=== PATIENT | male | born 1955 | race African-American/Black ===

== ENCOUNTER 2019-10-07 18:26 | Emergency (ER) | payer MEDICARE, MEDICAID ==
[2019-10-07 19:09] LABS: Hematocrit 44 % (42-52); Hemoglobin 15.7 g/dL (14.0-18.0); Mean Corpuscular HGB Conc 36 g/dL (31-36); Mean Corpuscular Hemoglobin 32 pg (27-31); Mean Corpuscular Volume 91 fL (80-94); Mean Platelet Volume 8.2 fL (7.4-10.4); Platelet Count 288 10^3/uL (150-450); Red Blood Count 4.87 10^6 /uL (4.18-5.48); Red Cell Distribution Width 14 % (10-15); White Blood Count 8.5 10^3/uL (3.5-10.8)
--- NOTE | 2019-10-07 19:22 | ED ---
HPI Chest Pain - HPI Summary HPI Summary: 64 year old M arriving via EMS to [facility] complains of 2 episodes of shortness of breath, dizziness/light headedness, left sided chest pain. Patient had one episode yesterday while walking up a hill. He states he developed symptoms suddenly. It felt like a panic attack per patient. No hx anxiety. He has never had a panic attack before. He went home, took some aspirin, drank some cough syrup, laid down, felt better. No cough. He has walked up this same hill many times before and never had these symptoms. Patient woke this morning feeling well. He had another episode today around 1500 while playing a game. He states he stood up and suddenly developed dizziness/light headedness, shortness of breath, left sided chest pain. This episode lasted several minutes. Patient reports no symptoms currently. Symptoms aggravated by nothing. Symptoms alleviated by aspirin, rest, NTG. EMS gave aspirin 324 mg and NTGx1. Current smoker. He lives with his mother. No recent known sick contacts. No recent stress. Home Medications Medication Instructions Recorded Confirmed Type NK [No Home Medications Reported] 10/07/19 10/07/19 History - History of Current Complaint Chief Complaint: EDChestPainROMI Time Seen by Provider: 10/07/19 18:56 Onset/Duration: Started Days Ago - 1, Resolved Timing: Lasting Minutes Current Severity: None Pain Intensity: 0 Pain Scale Used: 0-10 Numeric Aggravating Factor(s): Nothing Alleviating Factor(s): Rest, NTG 123, Other: - aspirin Associated Signs and Symptoms: Positive: Other: - shortness of breath, dizziness /light headedness - Allergy/Home Medications Allergies/Adverse Reactions: Allergies Allergy/AdvReac Type Severity Reaction Status Date / Time No Known Allergies Allergy Verified 03/21/15 17:12 Home Medications: Home Medications NK [No Home Medications Reported] 10/07/19 [History Confirmed 10/07/19] PMH/Surg Hx/FS Hx/Imm Hx Endocrine/Hematology History: Denies: Hx Anticoagulant Therapy, Hx Diabetes, Hx Thyroid Disease Cardiovascular History: Denies: Hx Hypertension, Hx Pacemaker/ICD Respiratory History: Denies: Hx Asthma, Hx Chronic Obstructive Pulmonary Disease (COPD) History: Denies: Hx Renal Disease Neurological History: Denies: Hx Dementia, Hx Seizures Psychiatric History: Denies: Hx Anxiety - Surgical History Surgical History: None Infectious Disease History: No Infectious Disease History: Denies: Hx Hepatitis, Hx Human Immunodeficiency Virus (HIV), Traveled Outside the [place] in Last 30 Days - Family History Known Family History: Positive: Cardiac Disease, Hypertension - Social History Alcohol Use: Weekly Hx Substance Use: Yes Substance Use Type: Reports: Marijuana Hx Tobacco Use: Yes Smoking Status (MU): Heavy Every Day Tobacco Smoker Review of Systems Positive: Chest Pain Positive: Shortness Of Breath. Negative: Cough Neurological/Mental Status: Other - light headedness/dizziness All Other Systems Reviewed And Are Negative: Yes Physical Exam - Summary Physical Exam Summary: Appearance: Well-appearing, Well-nourished, lying in bed comfortably Skin: Warm, dry, no obvious rash Eyes: sclera anicteric, no conjunctival pallor HENT: mucous membranes moist, pharynx appears normal Neck: Supple, nontender Respiratory: Clear to auscultation, no signs of respiratory distress Cardiovascular: Normal S1, S2. No murmurs. Normal distal pulses in tibial and radial bilaterally. Abdomen: Soft, nontender, normal active bowel sounds present Musculoskeletal: Normal, Strength/ROM Intact Neurological: A&Ox3, awake and alert, mentation is normal, speech is fluent and appropriate Psychiatric: affect is normal, does not appear anxious or depressed Triage Information Reviewed: Yes Vital Signs On Initial Exam: Initial Vitals Temp Pulse Resp BP Pulse Ox 99.6 F 67 17 120/76 98 10/07/19 18:41 10/07/19 18:41 10/07/19 18:41 10/07/19 18:41 10/07/19 18:41 Vital Signs Reviewed: Yes Procedures - Sedation Patient Received Moderate/Deep Sedation with Procedure: No Diagnostics - Vital Signs Vital Signs Temp Pulse Resp BP Pulse Ox 10/07/19 18:41 99.6 F 67 17 120/76 98 - Laboratory Lab Results: Lab Results 10/07/19 Range/Units 19:01 WBC 8.5 (3.5-10.8) 10^3/uL RBC 4.87 (4.18-5.48) 10^6 /uL Hgb 15.7 (14.0-18.0) g/dL Hct 44 (42-52) % MCV 91 (80-94) fL MCH 32 H (27-31) pg MCHC 36 (31-36) g/dL RDW 14 (10-15) % Plt Count 288 (150-450) 10^3/uL MPV 8.2 (7.4-10.4) fL Neut % (Auto) Pending Lymph % (Auto) Pending [place] % (Auto) Pending Eos % (Auto) Pending Baso % (Auto) Pending Absolute Neuts (auto) Pending Absolute Lymphs (auto) Pending Absolute Monos (auto) Pending Absolute Eos (auto) Pending Absolute Basos (auto) Pending Absolute Nucleated RBC Pending Nucleated RBC % Pending Result Diagrams: 10/07/19 19:01 10/07/19 19:01 Lab Statement: Any lab studies that have been ordered have been reviewed, and results considered in the medical decision making process. - EKG 191 Summary of EKG Findings: NSR at 67 BPM, P waves, QRS complex, and T waves are within normal limits, T waves and intervals are normal, no ischemic changes. This is a normal EKG. ED physician has reviewed and interpreted this EKG. Re-Evaluation - Re-Evaluation First Eval Re-Evaluation Time: 20:30 - patient requests nicotine patch Second Eval Re-Evaluation Time: 23:11 - patient agrees to d/c Chest Pain Course/Dx - Course Course Of Treatment: 64 y/o M presents after having 2 episodes of shortness of breath, dizziness/light headedness, left sided chest pain. Patient had one episode yesterday while walking up a hill. He took some aspirin and cough syrup , laid down, and felt better. He has walked up this same hill many times before and never had these symptoms. Patient woke this morning feeling well. He had another episode today around 1500 while playing a game. He states he stood up and suddenly developed symptoms. These episodes lasted several minutes. EMS gave aspirin 324 mg and NTGx1. Patient reports no symptoms currently. Physical exam unremarkable. Bloodwork results with no significant abnormalities. Second troponin 0.00. An EKG shows NSR at 67 BPM, P waves, QRS complex, and T waves are within normal limits, T waves and intervals are normal, no ischemic changes. This is a normal EKG. Patient's symptoms are resolved upon arrival to the ED. He has no symptoms while in the ED. Patient will be discharged home with follow up from [facility]. Patient was instructed to return to Emergency Department for new or worsening symptoms. Patient understands and is agreeable to this plan. - Diagnoses Provider Diagnoses: Dyspnea Discharge ED - Sign-Out/Discharge Documenting (check all that apply): Patient Departure - Discharge Plan Condition: Good Disposition: HOME Patient Education Materials: Dyspnea (ED) Referrals: [facility] [Outside] Additional Instructions: We did not find any evidence of trouble with your heart, so it is safe for you to go home. Of course, if you start to feel worse at home you should come back here. You should have a followup visit with your doctor or [facility] here at the hospital within the week. - Billing Disposition and Condition Condition: GOOD Disposition: Home - Attestation Statements Document Initiated by Servando: Yes Documenting Scribe: Cindy Garcia Provider For Whom Servando is Documenting (Include Credential): Richy Pickett MD Scribe Attestation: Cindy Abbasi, scribed for Richy Pickett MD on 10/09/19 at 0218. Scribe Documentation Reviewed: Yes Provider Attestation: The documentation as recorded by the Cindy alvarez accurately reflects the service I personally performed and the decisions made by , Richy Pickett MD Status of Scribvinnie Document: Viewed
[2019-10-07 19:26] LABS: Albumin 3.9 g/dL (3.2-5.2); Albumin/Globulin Ratio 1.3 (1-3); BUN/Creatinine Ratio 12.2 (8-20); Calcium 8.9 mg/dL (8.6-10.3); EGFR African American 128.4 (>60); EGFR Non-African American 106.2 (>60); Globulin 3.1 g/dL (2-4); Potassium 3.7 mmol/L (3.5-5.0); Total Bilirubin 0.6 mg/dL (0.2-1.0)
[2019-10-07 19:28] LABS: Troponin I 0.01 ng/mL (<0.03)
[2019-10-07 19:46] LABS: ABS Basophils 0.1 10^3/ul (0-0.2); ABS Eosinophils 0.1 10^3/ul (0-0.6); ABS Lymphocytes 2.9 10^3/ul (1.0-4.8); ABS Monocytes 0.5 10^3/ul (0-0.8); ABS Neutrophils 4.9 10^3/ul (1.5-7.7); Eosinophil % 1.4 %; Lymphocyte % 34.2 %
[2019-10-07] MEDS ORDERED: Nicotine PATCH 14 MG/24 HR* PATCH TRANSDERM ONE (20:30)
[2019-10-07 23:14] VITALS: BP 121/65
== END 2019-10-07 23:24 | disposition home or self-care (01) ==
LOC: ED 18:26 → MERGE 18:26 → ED 23:24
DX: R06.00 Dyspnea, unspecified (principal); R06.02 Shortness of breath; R42 Dizziness and giddiness; F17.210 Nicotine dependence, cigarettes, uncomplicated; R07.9 Chest pain, unspecified
CPT/HCPCS: 36415; 80053; 84484; 85025; 93005; 99283; A9270-GY

== ENCOUNTER 2023-02-04 07:48 | Observation (INO) ==
[2023-02-04] MEDS ORDERED: Lactated Ringers 1000 ml BAG 1,000 ML IV ONE ×2 (07:53→15:01)
[2023-02-04 08:44] LABS: ABS Basophils 0.1 10^3/uL (0.0-0.1); ABS Lymphocytes 1.1 10^3/uL (1.0-4.8); ABS Monocytes 1.5 10^3/uL (0.0-1.1); ABS Neutrophils 19.3 10^3/uL (1.5-7.6); ABS Nucleated RBC 0.01 10^3/ul; Eosinophil % 0.1 %; Hematocrit 47.1 % (38-53); Hemoglobin 16.6 g/dL (13.2-16.3); Lymphocyte % 4.9 %; Mean Corpuscular Hemoglobin 32.4 pg (27-33); Mean Corpuscular Hgb Conc 35.3 g/dL (31-36); Mean Corpuscular Volume 91.7 fL (80-97); Mean Platelet Volume 8.7 fL (7.5-11.2); Platelet Count 238 10^3/uL (150-450); Red Blood Count 5.14 10^6/uL (4.06-5.63); Red Cell Distribution Width 14.8 % (12-17); White Blood Count 21.9 10^3/uL (3.6-10.2)
[2023-02-04 09:13] LABS: Albumin 3.8 g/dL (3.2-5.2); Albumin/Globulin Ratio 1.1 (1-3); C Reactive Protein 178.73 mg/L (<8.01); Calcium 8.6 mg/dL (8.6-10.3); Creatinine, Serum 0.81 mg/dL (0.67-1.17); Globulin 3.4 g/dL (2-4); Potassium 3.1 mmol/L (3.5-5.0); Total Bilirubin 1.5 mg/dL (0.2-1.0); Total Protein 7.2 g/dL (6.4-8.9)
[2023-02-04] MEDS ORDERED: Potassium EFFERVES 25 meq TAB PO ONE (09:16)
[2023-02-04 10:13] LABS: High Sensitivity Troponin 1 Hr 11 pg/mL (<20)
[2023-02-04 10:29] LABS: Urine Appearance Clear; Urine Bilirubin Negative (Negative); Urine Blood 1+ (Negative); Urine Color Amber; Urine Glucose Negative (Negative); Urine Ketones 1+ (Negative); Urine Nitrite Negative (Negative); Urine Protein 2+(100 mg/dL) (Negative); Urine Specific Gravity 1.021 (1.002-1.030); Urine Urobilinogen Positive (Negative)
[2023-02-04 10:40] LABS: Urine Bacteria Absent (Absent); Urine Red Blood Cell 3+(>10/hpf) (Absent); Urine Squamous Epithelial Cell Present (Absent); Urine White Blood Cell Trace(0-5/hpf) (Absent)
[2023-02-04] MEDS ORDERED: Iohexol 350 (CONTRAST) 500 ML MDV IV ONE (10:52)
[2023-02-04] MEDS ORDERED: Thiamine 100 MG/ML 2 ml VIAL (200 mg) IV ONE (12:10)
[2023-02-04] MEDS ORDERED: Azithromycin 500 mg/250 ml NS 500 MG/250 ML BAG IVPB ONE (12:52)
[2023-02-04] MEDS ORDERED: cefTRIAXone 2 gm/50 mL D5W 2 GM/50 ML BAG IV ONE (12:52)
[2023-02-04 13:40] LABS: Blood Urea Nitrogen 7 mg/dL (6-24); CO2 Carbon Dioxide 19 mmol/L (22-32); Calcium 6.7 mg/dL (8.6-10.3); Chloride 101 mmol/L (101-111); Creatinine, Serum 0.53 mg/dL (0.67-1.17); Glucose 98 mg/dL (70-100); Sodium 126 mmol/L (135-145); eGFR CKD-EPI 109.2 (>60)
[2023-02-04 13:46] LABS: Anion Gap 6 mmol/L (2-16)
[2023-02-04] MEDS ORDERED: Senna TAB 8.6 mg TAB PO PRN (14:52)
[2023-02-04] MEDS ORDERED: Polyethylene Glycol 3350 17 GM PACKET PO PRN (14:52)
[2023-02-04] MEDS ORDERED: Magnesium Hydroxide LIQ 30 ML UDC PO PRN (14:52)
[2023-02-04] MEDS ORDERED: Thiamine 100 MG/ML 2 ml VIAL (200 mg) IM ONE (14:58)
[2023-02-04] MEDS ORDERED: LORazepam 2 mg VIAL 1 ml IV PUSH SCH (15:00)
[2023-02-04] MEDS ORDERED: Lorazepam PYXIS KEY PRN (15:02)
[2023-02-04] MEDS: Multivitamins/Minerals TAB PO SCH (16:08)
[2023-02-04 17:09] LABS: Urine Osmo 811 mOsm/kg (150-1150)
[2023-02-04 17:53] LABS: Osmolality Serum 265 mOsm/kg (275-295)
[2023-02-04 18:12] LABS: Folate 9.16 ng/mL (5.90-24.80)
[2023-02-05 06:03] LABS: ABS Basophils 0.1 10^3/uL (0.0-0.1); ABS Lymphocytes 1.2 10^3/uL (1.0-4.8); ABS Neutrophils 15.5 10^3/uL (1.5-7.6); ABS Nucleated RBC 0.01 10^3/ul; Hematocrit 46.6 % (38-53); Hemoglobin 16.5 g/dL (13.2-16.3); Lymphocyte % 6.8 %; Mean Corpuscular Hemoglobin 32.6 pg (27-33); Mean Corpuscular Hgb Conc 35.4 g/dL (31-36); Mean Corpuscular Volume 92.2 fL (80-97); Mean Platelet Volume 8.6 fL (7.5-11.2); Platelet Count 213 10^3/uL (150-450); Red Blood Count 5.05 10^6/uL (4.06-5.63); Red Cell Distribution Width 14.7 % (12-17); White Blood Count 17.7 10^3/uL (3.6-10.2)
[2023-02-05 06:12] LABS: Calcium 8.3 mg/dL (8.6-10.3); Creatinine, Serum 0.81 mg/dL (0.67-1.17); Magnesium 1.5 mg/dL (1.9-2.7); Potassium 3.6 mmol/L (3.5-5.0)
[2023-02-05] MEDS ORDERED: Potassium Chlor 20 meq TAB.ER PO ONE (07:30)
[2023-02-05] MEDS ORDERED: Magnesium Sulf 4 GM/100 ML IV 4,000 MG/100 ML BAG IVPB ONE (07:30)
[2023-02-05] MEDS: Multivitamins/Minerals TAB PO SCH (08:22)
[2023-02-05] MEDS ORDERED: Sodium Chloride(INHALANT) 7% 4 ML NEB.SOLN INH ONE (10:57)
[2023-02-05] MEDS ORDERED: Azithromycin 500 mg/250 ml NS 500 MG/250 ML BAG IVPB SCH (13:00)
[2023-02-05] MEDS ORDERED: NS 0.9% 1000 ml BAG 1,000 ML IV SCH (15:30)
[2023-02-05] MEDS ORDERED: cefTRIAXone 1 gm/50 mL D5W 1 GM/50 ML BAG IV SCH (16:00)
[2023-02-05 21:17] LABS: Creatinine, Serum 0.74 mg/dL (0.67-1.17); Potassium 3.9 mmol/L (3.5-5.0); eGFR CKD-EPI 98.7 (>60)
[2023-02-06 05:53] LABS: ABS Basophils 0.1 10^3/uL (0.0-0.1); ABS Lymphocytes 1.8 10^3/uL (1.0-4.8); ABS Monocytes 1.4 10^3/uL (0.0-1.1); ABS Neutrophils 9.1 10^3/uL (1.5-7.6); ABS Nucleated RBC 0.06 10^3/ul; Eosinophil % 0.2 %; Hematocrit 48.3 % (38-53); Hemoglobin 16.8 g/dL (13.2-16.3); Lymphocyte % 14.5 %; Mean Corpuscular Hemoglobin 32.7 pg (27-33); Mean Corpuscular Hgb Conc 34.8 g/dL (31-36); Mean Corpuscular Volume 93.8 fL (80-97); Mean Platelet Volume 8.7 fL (7.5-11.2); Nucleated Red Blood Cells % 0.5 /100 WBC (0.0-0.4); Platelet Count 255 10^3/uL (150-450); Red Blood Count 5.14 10^6/uL (4.06-5.63); Red Cell Distribution Width 14.9 % (12-17); White Blood Count 12.3 10^3/uL (3.6-10.2)
[2023-02-06 06:13] LABS: Calcium 8.3 mg/dL (8.6-10.3); Creatinine, Serum 0.84 mg/dL (0.67-1.17); Magnesium 2.2 mg/dL (1.9-2.7); Potassium 4.2 mmol/L (3.5-5.0)
[2023-02-06] MEDS: Multivitamins/Minerals TAB PO SCH (08:23)
[2023-02-06 09:35] VITALS: BP 122/92
== END 2023-02-06 13:35 | disposition home or self-care (01) ==
LOC: EDHOLD 07:48 → ED 07:48 → SUATTDRO 14:52 → MED 19:41
PROVIDERS: ADMIT Internal Medicine Hematology & Oncology; ATTEND Hospitalist